=== PATIENT | female | born 1995 | race Caucasian/White ===

== ENCOUNTER 2016-09-21 22:16 | Emergency (ER) | payer BC, OTHER ==
--- NOTE | 2016-09-21 23:08 | EDM.PDOC ---
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 The patient has had no nausea vomiting diarrhea and has a history of chronic constipation. The patient has had no fevers or chills no urinary complaints and currently is not vaginally bleeding. She has no history of STDs and no history. She is scheduled to meet with her OB M.D. next week at [facility]. She is concerned and presents for evaluation Review of systems: As per history of present illness and below otherwise all systems reviewed and negative. Past medical history: As per history of present illness and as reviewed below otherwise noncontributory. Surgical history: As per history of present illness and as reviewed below otherwise noncontributory. Social history: No reported history of drug or alcohol abuse. Family history: As per history of present illness and as reviewed below otherwise noncontributory. Physical exam: Gen.: Well-developed well-nourished female who is nontoxic and vital signs have been reviewed by me HEENT: Atraumatic, normocephalic, negative for conjunctival pallor or scleral icterus, mucous membranes moist, throat clear, neck supple, nontender, trachea midline. Lungs: Clear to auscultation, breath sounds equal bilaterally, chest nontender. Heart: S1S2, regular rate and rhythm no overt murmurs Abdomen: Soft, nondistended, nontender. Negative for masses or hepatosplenomegaly. Negative for costovertebral tenderness. Pelvis: Stable nontender. Genitourinary: Deferred. Rectal: Deferred. Extremities: Atraumatic, negative for cords or calf pain. Neurovascular unremarkable. Neuro: Awake, alert, oriented. Cranial nerves II through XII unremarkable. Cerebellum unremarkable. Motor and sensory unremarkable throughout. Exam nonfocal. Diagnostics: CBC quantitative hCG UA urine culture if indicated pelvic ultrasound ABO Rh Therapeutics: I discussed all testing results with the patient had significant other bedside. I have advised strict pelvic rest and keeping her appointment next week at [facility]. Advised on reasons to return to the ED Impression: Threatened Definitive disposition and diagnosis as appropriate pending reevaluation and review of above. - Related Data Allergies Allergy/AdvReac Type Severity Reaction Status Date / Time No Known Allergies Allergy Verified 09/21/16 22:45 Home Meds: Home Meds . [No Known Home Meds] 09/21/16 [History] Past Medical History - Past Health History Medical/Surgical History: Denies Medical/Surgical History Social & Family History - Tobacco Use Smoking Status *Q: Never Smoker Second Hand Smoke Exposure: No - Caffeine Use Caffeine Use: Reports: None - Recreational Drug Use Recreational Drug Use: No ED ROS GENERAL - Review of Systems Review Of Systems: ROS reveals no pertinent complaints other than HPI. ED EXAM, GENERAL - Physical Exam Exam: See Below (See dictation) Course - Vital Signs Last Recorded V/S: Last Vital Signs Temp 36.8 C 09/21/16 22:52 Pulse 82 09/21/16 22:52 Resp 18 09/21/16 22:52 BP 108/56 L 09/21/16 22:52 Pulse Ox 96 09/21/16 22:52 - Orders/Labs/Meds Orders: Active Orders 24 hr Category Date Time Status OB 1st Tri Sgl 1st Gest [US] Stat Exams 09/21/16 23:05 Taken Labs: Laboratory Tests 09/21/16 09/21/16 09/21/16 Range/Units 23:10 23:10 23:10 WBC 8.40 (4.0-11.0) K/uL RBC 4.34 (4.30-5.90) M/uL Hgb 12.8 (12.0-16.0) g/dL Hct 37.5 (36.0-46.0) % MCV 86.4 (80.0-98.0) fL MCH 29.5 (27.0-32.0) pg MCHC 34.1 (31.0-37.0) g/dL RDW Std Deviation 37.2 (28.0-62.0) fl RDW Coeff of Juancarlos 12 (11.0-15.0) % Plt Count 241 (150-400) K/uL MPV 9.30 (7.40-12.00) fL Neut % (Auto) 56.8 (48.0-80.0) % Lymph % (Auto) 31.2 (16.0-40.0) % Bourbon % (Auto) 7.5 (0.0-15.0) % Eos % (Auto) 4.0 (0.0-7.0) % Baso % (Auto) 0.5 (0.0-1.5) % Neut # (Auto) 4.8 (1.4-5.7) K/uL Lymph # (Auto) 2.6 H (0.6-2.4) K/uL Bourbon # (Auto) 0.6 (0.0-0.8) K/uL Eos # (Auto) 0.3 (0.0-0.7) K/uL Baso # (Auto) 0.0 (0.0-0.1) K/uL Nucleated RBC % 0.0 /100WBC Nucleated RBCs # 0 K/uL HCG, Quant 14362.9 mIU/mL Urine Color Urine Appearance Urine pH (5.0-8.0) Ur Specific Harlan (1.001-1.035) Urine Protein (NEGATIVE) mg/dL Urine Glucose (UA) (NEGATIVE) mg/dL Urine Ketones (NEGATIVE) mg/dL Urine Occult Blood (NEGATIVE) Urine Nitrite (NEGATIVE) Urine Bilirubin (NEGATIVE) Urine Urobilinogen (<2.0) EU/dL Ur Leukocyte Esterase (NEGATIVE) Urine RBC (0-2/HPF) Urine WBC (0-5/HPF) Ur Epithelial Cells (NONE-FEW) Urine Bacteria (NEGATIVE) Blood Type A POSITIVE 09/21/16 Range/Units 23:17 WBC (4.0-11.0) K/uL RBC (4.30-5.90) M/uL Hgb (12.0-16.0) g/dL Hct (36.0-46.0) % MCV (80.0-98.0) fL MCH (27.0-32.0) pg MCHC (31.0-37.0) g/dL RDW Std Deviation (28.0-62.0) fl RDW Coeff of Juancarlos (11.0-15.0) % Plt Count (150-400) K/uL MPV (7.40-12.00) fL Neut % (Auto) (48.0-80.0) % Lymph % (Auto) (16.0-40.0) % Bourbon % (Auto) (0.0-15.0) % Eos % (Auto) (0.0-7.0) % Baso % (Auto) (0.0-1.5) % Neut # (Auto) (1.4-5.7) K/uL Lymph # (Auto) (0.6-2.4) K/uL Bourbon # (Auto) (0.0-0.8) K/uL Eos # (Auto) (0.0-0.7) K/uL Baso # (Auto) (0.0-0.1) K/uL Nucleated RBC % /100WBC Nucleated RBCs # K/uL HCG, Quant mIU/mL Urine Color YELLOW Urine Appearance CLEAR Urine pH 6.0 (5.0-8.0) Ur Specific Harlan 1.020 (1.001-1.035) Urine Protein NEGATIVE (NEGATIVE) mg/dL Urine Glucose (UA) NEGATIVE (NEGATIVE) mg/dL Urine Ketones NEGATIVE (NEGATIVE) mg/dL Urine Occult Blood NEGATIVE (NEGATIVE) Urine Nitrite NEGATIVE (NEGATIVE) Urine Bilirubin NEGATIVE (NEGATIVE) Urine Urobilinogen 0.2 (<2.0) EU/dL Ur Leukocyte Esterase NEGATIVE (NEGATIVE) Urine RBC NONE SEEN (0-2/HPF) Urine WBC 0-1 (0-5/HPF) Ur Epithelial Cells FEW (NONE-FEW) Urine Bacteria RARE (NEGATIVE) Blood Type Departure - Departure Time of Disposition: 00:46 Disposition: Home, Self-Care 01 Condition: Good Clinical Impression: Threatened - Discharge Information Forms: ED Department Discharge Additional Instructions: The following information is given to patients seen in the emergency department who are being discharged to home. This information is to outline your options for follow-up care. We provide all patients seen in our emergency department with a follow-up referral. The need for follow-up, as well as the timing and circumstances, are variable depending upon the specifics of your emergency department visit. If you don't have a primary care physician on staff, we will provide you with a referral. We always advise you to contact your personal physician following an emergency department visit to inform them of the circumstance of the visit and for follow-up with them and/or the need for any referrals to a consulting specialist. The emergency department will also refer you to a specialist when appropriate. This referral assures that you have the opportunity for followup care with a specialist. All of these measure are taken in an effort to provide you with optimal care, which includes your followup. Under all circumstances we always encourage you to contact your private physician who remains a resource for coordinating your care. When calling for followup care, please make the office aware that this follow-up is from your recent emergency room visit. If for any reason you are refused follow-up, please contact the [facility] emergency department at and ask to speak to the emergency department charge nurse. [facility] [address] [place] [phone] Push hydration and rest as much as possible and nothing in vagina/strict pelvic rest as we discussed until you're followed up in the clinic. Please keep your appointment next week at [facility] and return to ER as needed and as discussed - My Orders Last 24 Hours: My Active Orders 09/21/16 23:05 OB 1st Tri Sgl 1st Gest [US] Stat - Assessment/Plan Last 24 Hours: My Active Orders 09/21/16 23:05 OB 1st Tri Sgl 1st Gest [US] Stat
[2016-09-22 01:02] VITALS: BP 135/81
--- NOTE | 2016-09-22 10:05 | US ---
EXAM DATE: 09/21/16 PATIENT'S AGE: 21 Patient: YVETTE COWAN Facility: [place], [place] Site . Site : 1995 Study: US OB Pelvis [id number]/26/2017 12:29:25 AM Ordering Physician: Fiorella Jeffery Final Report: INDICATION: Bleeding. TECHNIQUE: Ultrasound pelvis transabdominal and transvaginal for better assessment or to better visualize the endometrium. Real-time sonographic images with spectral and color Doppler imaging of the ovaries were obtained. COMPARISON: None. FINDINGS: Single living intrauterine with crown-rump length of 12 mm corresponding to 7 weeks 3 days. heart rate is 150 beats per minute. Normal-appearing gestational sac and yolk sac. The uterus is otherwise normal in appearance. Right ovary is 3.3 x 1.9 x 2.1 cm and is within normal limits. Normal-appearing color Doppler flow in the right ovary. Left ovary is 3.2 x 1.9 x 2.4 cm and is within normal limits. Normal-appearing color Doppler flow in the left ovary. No pelvic free fluid. IMPRESSION: Single living intrauterine with estimated age of 7 weeks 3 days. Dictated by Rachid Moreno MD @ 09/22/2016 12:41:31 AM Dictated by: Rachid Moreno MD @ 09/22/2016 00:41:50 (Electronic Signature) Report Signed by Proxy. DENNIS
== END 2016-09-22 00:59 | disposition home or self-care (01) ==
LOC: MW.ED 22:16
DX: O20.0 Threatened abortion (principal); Z3A.01 Less than 8 weeks gestation of pregnancy
CPT/HCPCS: 36415; 76801; 76801-26; 81001; 84702; 85025; 86900; 86901; 99283; 99284-25

== ENCOUNTER 2017-04-29 00:56 | Inpatient (IN) | payer BC ==
[2017-04-29] MEDS ORDERED: Sodium Chloride 0.9% 2.5 ML Syringe FLUSH PRN ×2 (02:59→03:39)
[2017-04-29] MEDS ORDERED: Sodium Chloride 0.9% 10 ML Syringe FLUSH PRN ×2 (02:59→03:39)
[2017-04-29] MEDS ORDERED: Lactated Ringers 1,000 ML IV SCH ×3 (03:00→06:15)
[2017-04-29] MEDS ORDERED: Citric Acid/Sodium Citrate Solution 30 ML Cup PO SCH (03:45)
[2017-04-29] MEDS ORDERED: Oxytocin/0.9 % Sodium Chloride 30 UNIT/500 ML BAG IV SCH (03:45)
[2017-04-29] MEDS ORDERED: ceFAZolin 1 GM in Premix Bag 1 BAG IV ONE (05:00)
[2017-04-29] MEDS ORDERED: Morphine PF 1 MG/ML Amp ONE (05:11)
[2017-04-29] MEDS ORDERED: ceFAZolin/Dextrose,Iso-Osmotic 2 GM/50 ML Duplex Bag IV ONE (05:20)
[2017-04-29] MEDS ORDERED: ePHEDrine 50 MG/ML SDV ONE (05:29)
[2017-04-29] MEDS ORDERED: Acetaminophen/oxyCODONE 325-5 MG Tab PO PRN ×2 (06:04→06:20)
[2017-04-29] MEDS ORDERED: Aluminum Hydroxide/Magnesium Hydroxide/Simethicone Susp 30 ML Cup PO PRN (06:04)
[2017-04-29] MEDS ORDERED: Lanolin 100% Cream 7 GM Tube TOP PRN (06:04)
[2017-04-29] MEDS ORDERED: Simethicone 80 MG Tab.Chew PO PRN (06:04)
[2017-04-29] MEDS ORDERED: diphenhydrAMINE 50 MG/ML SDV IVPUSH PRN ×2 (06:04→06:18)
[2017-04-29] MEDS ORDERED: Ondansetron 4 MG/2 ML SDV IV PRN (06:04)
[2017-04-29] MEDS ORDERED: Bisacodyl 10 MG Supp RECTAL PRN (06:04)
--- NOTE | 2017-04-29 06:09 | PCM.PREANE ---
Preanesthetic Assessment - Anesthesia/Transfusion/Family Hx Anesthesia History: Prior Anesthesia Without Reaction Family History of Anesthesia Reaction: No Transfusion History: No Prior Transfusion(s) Intubation History: Unknown - Review of Systems General: No Symptoms Pulmonary: No Symptoms Cardiovascular: No Symptoms Gastrointestinal: No Symptoms Neurological: No Symptoms Other: Reports: None - Physical Assessment Height: 1.68 m Weight: 78.471 kg ASA Class: 2E Mental Status: Alert & Oriented x3 Airway Class: Mallampati = 2 Dentition: Reports: Normal Dentition Thyro-Mental Finger Breadths: 3 Mouth Opening Finger Breadths: 3 ROM/Head Extension: Full Lungs: Clear to Auscultation, Normal Respiratory Effort Cardiovascular: Regular Rate, Regular Rhythm - Lab Values: Laboratory Last Values WBC 13.79 K/uL (4.0-11.0) H 04/29/17 04:08 RBC 3.90 M/uL (4.30-5.90) L 04/29/17 04:08 Hgb 12.2 g/dL (12.0-16.0) 04/29/17 04:08 Hct 35.1 % (36.0-46.0) L 04/29/17 04:08 MCV 90.0 fL (80.0-98.0) 04/29/17 04:08 MCH 31.3 pg (27.0-32.0) 04/29/17 04:08 MCHC 34.8 g/dL (31.0-37.0) 04/29/17 04:08 RDW Std Deviation 40.8 fl (28.0-62.0) 04/29/17 04:08 RDW Coeff of Juancarlos 13 % (11.0-15.0) 04/29/17 04:08 Plt Count 197 K/uL (150-400) 04/29/17 04:08 MPV 10.50 fL (7.40-12.00) 04/29/17 04:08 Nucleated RBC % 0.0 /100WBC 04/29/17 04:08 Nucleated RBCs # 0 K/uL 04/29/17 04:08 Blood Type A POSITIVE 04/29/17 04:08 Antibody Screen NEGATIVE 04/29/17 04:08 - Allergies Allergies/Adverse Reactions: Allergies Allergy/AdvReac Type Severity Reaction Status Date / Time No Known Allergies Allergy Verified 04/27/17 09:50 - Blood Blood Available: No - Anesthesia Plan Pre-Op Medication Ordered: None - Acknowledgements Anesthesia Type Planned: Spinal Pt an Appropriate Candidate for the Planned Anesthesia: Yes Alternatives and Risks of Anesthesia Discussed w Pt/Guardian: Yes Pt/Guardian Understands and Agrees with Anesthesia Plan: Yes PreAnesthesia Questionnaire - Past Health History Medical/Surgical History: Denies Medical/Surgical History Gastrointestinal History: Reports: Chronic Constipation 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: Musculoskeletal History: Reports: Fracture - Past Surgical History Head Surgeries/Procedures: Reports: None HEENT Surgical History: Reports: Adenoidectomy, Oral Surgery, Tonsillectomy Female Surgical History: Reports: Other (See Below) (attempted external version ealier this week) - SUBSTANCE USE Smoking Status *Q: Never Smoker Second Hand Smoke Exposure: No Recreational Drug Use History: No - HOME MEDS Home Medications: Home Meds PNV95/Ferrous Fumarate/FA [ Vitamins Tablet] 1 tab PO DAILY 04/27/17 [ History] - CURRENT (IN HOUSE) MEDS Current Meds: Current Medications Al Hydroxide/Mg Hydroxide (Mag-Al Plus) 30 ml PO Q8H PRN PRN Reason: Heartburn Bisacodyl (Dulcolax) 10 mg RECTAL .ONCE PRN PRN Reason: Constipation Citric Acid/Sodium Citrate (Bicitra Solution) 30 ml PO .ONCE HUSAM Diphenhydramine HCl (Benadryl) 25 mg IVPUSH Q6H PRN PRN Reason: Itching or Nausea Docusate Sodium (Colace) 100 mg PO BID HUSAM Emollient Ointment (Lansinoh Hpa) 0 gm TOP ASDIRECTED PRN PRN Reason: Sore Nipples Lactated Ringer's (Ringers, Lactated) 1,000 mls @ 500 mls/hr IV .BOLUS HUSAM Oxytocin/Sodium Chloride (Oxytocin 30 Unit/500 Ml-Ns) 30 unit in 500 mls @ 250 mls/hr IV TITRATE HUSAM Lactated Ringer's (Ringers, Lactated) 1,000 mls @ 500 mls/hr IV .BOLUS HUSAM Last Admin: 04/29/17 04:46 Dose: 500 mls/hr Lactated Ringer's (Ringers, Lactated) 1,000 mls @ 125 mls/hr IV ASDIRECTED HUSAM Ibuprofen (Motrin) 800 mg PO Q8H PRN PRN Reason: mild pain or fever Ketorolac Tromethamine (Toradol) 30 mg IVPUSH Q6H HUSAM Stop: 04/30/17 06:16 Ondansetron HCl (Zofran) 4 mg IV Q4H PRN PRN Reason: Nausea/Vomiting Oxycodone/Acetaminophen (Percocet 325-5 Mg) 1 tab PO Q4H PRN PRN Reason: Pain (moderate 4-6) Oxycodone/Acetaminophen (Percocet 325-5 Mg) 2 tab PO Q4H PRN PRN Reason: Pain (moderate 4-6) Simethicone (Simethicone) 80 mg PO Q4H PRN PRN Reason: Gas Sodium Chloride (Saline Flush) 10 ml FLUSH ASDIRECTED PRN PRN Reason: Keep Vein Open Sodium Chloride (Saline Flush) 2.5 ml FLUSH ASDIRECTED PRN PRN Reason: Keep Vein Open Sodium Chloride (Saline Flush) 10 ml FLUSH ASDIRECTED PRN PRN Reason: Keep Vein Open Sodium Chloride (Saline Flush) 2.5 ml FLUSH ASDIRECTED PRN PRN Reason: Keep Vein Open Discontinued Medications Cefazolin Sodium/Dextrose (Ancef) Confirm Administered Dose 2 gm IV .STK-MED ONE Stop: 04/29/17 05:21 Ephedrine Sulfate (Ephedrine Sulfate) Confirm Administered Dose 50 mg .ROUTE .STK-MED ONE Stop: 04/29/17 05:30 Cefazolin Sodium/Dextrose 1 gm (/ Premix) 50 mls @ 100 mls/hr IV ONETIME ONE Stop: 04/29/17 05:29 Morphine Sulfate (Duramorph Pf) Confirm Administered Dose 1 mg .ROUTE .STK-MED ONE Stop: 04/29/17 05:12
--- NOTE | 2017-04-29 06:12 | PCM.OPNOTE ---
- General Post-Op/Procedure Note Date of Surgery/Procedure: 04/29/17 Operative Procedure(s): Primary LTCS Findings: Term male APGARs 8, 9 weight 3750 gm. Delivery intact placenta with 3V cord. normal appearing pelvis, normal appearing uterine cavity Pre Op Diagnosis: 38/6 week IUP. Labor. Breech presentation Post-Op Diagnosis: Same Anesthesia Technique: Spinal Primary Surgeon: Dorene Bray Fluid Replacement, Intraop: 1,500 EBL in mLs: 700 Complications: none known Condition: Good Free Text/Narrative:: Intake & Output 04/28/17 04/28/17 04/29/17 14:59 22:59 06:59 Output Total 100 Balance -100 Dictation [id number]
[2017-04-29] MEDS ORDERED: Naloxone 0.4 MG/ML Syringe IVPUSH PRN (06:18)
[2017-04-29] MEDS ORDERED: Nalbuphine 10 MG/1 ML Vial IVPUSH PRN (06:18)
[2017-04-29] MEDS: Ketorolac 30 MG/ML SDV IVPUSH SCH ×3 (06:18→18:12)
[2017-04-29] MEDS ORDERED: fentaNYL 100 MCG/2 ML SDV IVPUSH PRN (06:20)
--- NOTE | 2017-04-29 06:42 | PCM.POSTAN ---
POST ANESTHESIA ASSESSMENT - MENTAL STATUS Mental Status: Alert, Oriented - RESPIRATORY Respiratory Status: Respiratory Rate WNL, Airway Patent, O2 Saturation Stable - CARDIOVASCULAR CV Status: Pulse Rate WNL, Blood Pressure Stable - GASTROINTESTINAL GI Status: No Symptoms - POST OP HYDRATION Hydration Status: Adequate & Stable
--- NOTE | 2017-04-29 07:43 | OR ---
SURGEON: Dorene Bray M.D. DATE OF PROCEDURE: 04/29/2017 PREOPERATIVE DIAGNOSES: 1. A 38 and 6 week intrauterine . 2. Active labor. 3. Breech presentation. POSTOPERATIVE DIAGNOSES: 1. A 38 and 6 week intrauterine . 2. Active labor. 3. Breech presentation. PROCEDURE: Primary low transverse section via Pfannenstiel skin incision. ANESTHESIA: Spinal. ESTIMATED BLOOD LOSS: 700 mL. FLUIDS: 1500 mL crystalloid. COMPLICATIONS: None known. FINDINGS: Term male, score 8 at 1 minute, 9 at 5 minute. Weight of 3750 g. Intact placenta, 3-vessel cord. Normal appearing pelvis. Normal appearing uterine cavity. Clear amniotic fluid. DISPOSITION: The patient to PACU in stable condition. Infant to nursery. 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 On initial examination, she was found to be 1 cm; within 2 hours, she was found to be 3 cm. Therefore, she was admitted for labor. Routine labs were drawn. IV hydration was initiated. She is known breech presentation. This was confirmed by bedside sonogram. Attempts at external cephalic version earlier in the week were no successful; therefore, it was planned to have a delivery. Risks of the were once again reviewed with Areli and her . Proper consent has been obtained. The patient was taken to the operating room, where she underwent spinal anesthetic, was placed in dorsal supine position with leftward tilt. SCDs lower extremities, Shipman to gravity, was prepped and draped in the usual sterile fashion. Received Ancef prophylactically. Time-out was performed. After being prepped and draped in the usual sterile fashion, anesthesia was tested and found to be adequate. Pfannenstiel skin incision was created, carried down to the level of rectus fascia, which was incised in the midline lateralized on either side sharply and bluntly. The superior aspect of fascia was tented up, dissected sharply and bluntly away from underlying muscle. In a similar fashion, this was performed with the inferior aspect of the fascia. Rectus muscles were in the midline. Peritoneum was tented upward and entered sharply. Rectus muscles and peritoneum were lateralized bluntly. Uterine position and position palpated. Self-retaining retractor gently placed. Uterovesical reflection was visualized. Bladder flap was created sharply and bluntly. Bladder was mobilized away from the lower uterine segment. Low transverse hysterotomy was performed. Uterine cavity was entered bluntly with the scalpel. Hysterotomy was lateralized bluntly. Amniotomy revealed clear fluid. The infant's buttocks were delivered to the midline, the buttocks were delivered followed by the right lower extremity and left lower extremity in flexed position, trunk and right upper extremity in flexed position, left upper extremity was flexed the head and with fundal pressure was able to deliver the head. The infant's oropharynx and nares were bulb suctioned. Cord was clamped x2 and cut. Infant was handed off to attending physician, Dr. Messina. Cord arterial, cord venous, cord blood sampling was obtained. The placenta was now delivered. Uterine cavity was cleared of all clot and debris. The uterine cavity appears normal by palpation. Hysterotomy repaired using 0 Vicryl in continuous locked fashion followed by a re-imbricating layer. Area of oozing in the left lower side was repaired with a [id number] suture. Hemostasis thereafter evident. Posterior aspect of the uterus revealed no defects or hematomas. The regions were well irrigated and suction dried. Colonic gutters were cleared of all clot and debris, well irrigated and suction dried. The hysterotomy was once again inspected and found to be hemostatic. Self-retaining retractor now gently removed. Bladder blade was placed. Hysterotomy once again inspected, found to be hemostatic. The rectus muscles were reapproximated using 0 Vicryl in inverted mattress suture technique. Anterior aspect of the muscle, posterior aspect of the fascia closely inspected. Any areas of oozing were cauterized. The rectus fascia was reapproximated using 0 Vicryl in a continuous running fashion beginning laterally on either side and meeting in the midline. The subcutaneous tissue was well irrigated and suction dried. Any areas of oozing were cauterized. The skin edges were reapproximated with 3-0 Vicryl in subcuticular fashion. It was followed by a re-imbrication with 1/2-inch Steri-Strips and Mastisol. Sponge, instrument, and needle counts were correct x2. The uterus remains firm. Hemostasis evident. The patient will go to PACU in stable condition. Infant to nursery. CRUZITO / BEATRIZ /[id number]
[2017-04-29] MEDS: Docusate Sodium 100 MG Cap PO SCH ×2 (12:22→21:30)
[2017-04-30] MEDS: Ketorolac 30 MG/ML SDV IVPUSH SCH ×2 (00:39→05:54)
[2017-04-30] MEDS: Docusate Sodium 100 MG Cap PO SCH ×2 (08:46→20:04)
--- NOTE | 2017-04-30 09:40 | PCM.PNPP ---
- General Info Date of Service: 04/30/17 Admission Dx/Problem (Free Text): 21 yo P1 s/p primary for breech presentation , stable Subjective Update: Patient seen at bedside , denies any complains , she is ambulating , voiding and tolerating regular diet Minimal lochia Functional Status: Reports: Pain Controlled, Tolerating Diet, Ambulating, Urinating - Review of Systems General: Reports: No Symptoms HEENT: Reports: No Symptoms Pulmonary: Reports: No Symptoms Cardiovascular: Reports: No Symptoms Gastrointestinal: Reports: No Symptoms Genitourinary: Reports: No Symptoms Musculoskeletal: Reports: No Symptoms Skin: Reports: No Symptoms Neurological: Reports: No Symptoms Psychiatric: Reports: No Symptoms - General Info Date of Service: 04/30/17 - Patient Data Vital Signs - Most Recent: Last Vital Signs Temp 36.8 C 04/30/17 07:35 Pulse 71 04/30/17 07:35 Resp 15 04/30/17 07:35 BP 91/53 L 04/30/17 07:35 Pulse Ox 96 04/30/17 07:35 Weight - Most Recent: 78.471 kg I&O - Last 24 Hours: Intake & Output 04/29/17 04/30/17 04/30/17 22:59 06:59 14:59 Intake Total 2025 700 Output Total 580 1200 Balance 1445 -500 Lab Results - Last 24 Hours: Laboratory Results - last 24 hr 04/30/17 Range/Units 05:48 Hgb 9.3 L (12.0-16.0) g/dL Hct 27.8 L (36.0-46.0) % Med Orders - Current: Current Medications Al Hydroxide/Mg Hydroxide (Mag-Al Plus) 30 ml PO Q8H PRN PRN Reason: Heartburn Bisacodyl (Dulcolax) 10 mg RECTAL .ONCE PRN PRN Reason: Constipation Citric Acid/Sodium Citrate (Bicitra Solution) 30 ml PO .ONCE HUSAM Docusate Sodium (Colace) 100 mg PO BID HUSAM Last Admin: 04/30/17 08:46 Dose: 100 mg Emollient Ointment (Lansinoh Hpa) 0 gm TOP ASDIRECTED PRN PRN Reason: Sore Nipples Fentanyl (Sublimaze) 25 - 50 mcg IVPUSH Q30M PRN PRN Reason: Pain Lactated Ringer's (Ringers, Lactated) 1,000 mls @ 500 mls/hr IV .BOLUS [facility] Last Admin: 04/30/17 08:45 Dose: Not Given Oxytocin/Sodium Chloride (Oxytocin 30 Unit/500 Ml-Ns) 30 unit in 500 mls @ 250 mls/hr IV TITRATE HUSAM Lactated Ringer's (Ringers, Lactated) 1,000 mls @ 500 mls/hr IV .BOLUS [facility] Last Admin: 04/29/17 04:46 Dose: 500 mls/hr Lactated Ringer's (Ringers, Lactated) 1,000 mls @ 125 mls/hr IV ASDIRECTED [facility] Last Admin: 04/29/17 07:45 Dose: 125 mls/hr Ibuprofen (Motrin) 800 mg PO Q8H PRN PRN Reason: mild pain or fever Ondansetron HCl (Zofran) 4 mg IV Q4H PRN PRN Reason: Nausea/Vomiting Oxycodone/Acetaminophen (Percocet 325-5 Mg) 1 tab PO Q4H PRN PRN Reason: Pain (moderate 4-6) Oxycodone/Acetaminophen (Percocet 325-5 Mg) 2 tab PO Q4H PRN PRN Reason: Pain (moderate 4-6) Oxycodone/Acetaminophen (Percocet 325-5 Mg) 1 - 2 tab PO Q6H PRN PRN Reason: Pain Stop: 05/01/17 14:00 Simethicone (Simethicone) 80 mg PO Q4H PRN PRN Reason: Gas Sodium Chloride (Saline Flush) 10 ml FLUSH ASDIRECTED PRN PRN Reason: Keep Vein Open Sodium Chloride (Saline Flush) 2.5 ml FLUSH ASDIRECTED PRN PRN Reason: Keep Vein Open Sodium Chloride (Saline Flush) 10 ml FLUSH ASDIRECTED PRN PRN Reason: Keep Vein Open Sodium Chloride (Saline Flush) 2.5 ml FLUSH ASDIRECTED PRN PRN Reason: Keep Vein Open Discontinued Medications Cefazolin Sodium/Dextrose (Ancef) Confirm Administered Dose 2 gm IV .STK-MED ONE Stop: 04/29/17 05:21 Diphenhydramine HCl (Benadryl) 25 mg IVPUSH Q6H PRN PRN Reason: Itching or Nausea Diphenhydramine HCl (Benadryl) 25 mg IVPUSH Q4H PRN PRN Reason: Itching Stop: 04/30/17 06:19 Ephedrine Sulfate (Ephedrine Sulfate) Confirm Administered Dose 50 mg .ROUTE .STK-MED ONE Stop: 04/29/17 05:30 Cefazolin Sodium/Dextrose 1 gm (/ Premix) 50 mls @ 100 mls/hr IV ONETIME ONE Stop: 04/29/17 05:29 Last Admin: 04/30/17 08:45 Dose: Not Given Ketorolac Tromethamine (Toradol) 30 mg IVPUSH Q6H HUSAM Stop: 04/30/17 06:31 Last Admin: 04/30/17 05:54 Dose: 30 mg Morphine Sulfate (Duramorph Pf) Confirm Administered Dose 1 mg .ROUTE .STK-MED ONE Stop: 04/29/17 05:12 Nalbuphine HCl (Nubain) 5 mg IVPUSH Q3H PRN PRN Reason: Pruritis Stop: 04/30/17 06:19 Naloxone HCl (Narcan) 0.1 mg IVPUSH ONETIME PRN PRN Reason: Other Stop: 04/30/17 06:20 - Interaction Infant Disposition, : at Bedside Feeding: Breastfed ; Nursed Well Support Person: - Recovery Exam Fundal Tone: Firm Fundal Level: 1 Fingerbreadths Below Umbilicus Fundal Placement: Midline Lochia Amount: Scant Lochia Color: Rubra/Red Perineum Description: Intact, Minimal Bruising/Swelling Episiotomy/Laceration: None Bladder Status: Nonpalpable, Voiding Urinary Elimination: Voided - Exam General: Alert, Oriented HEENT: Pupils Equal Neck: Supple Lungs: Clear to Auscultation, Normal Respiratory Effort Cardiovascular: Regular Rate, Regular Rhythm GI/Abdominal Exam: Normal Bowel Sounds, Other (Pfannestiel skin incision with wound dressing in place c/d/i ) Extremities: Normal Inspection Wound/Incisions: Healing Well Psy/Mental Status: Alert, Normal Affect - Problem List & Annotations (1) delivery delivered SNOMED Code(s): 481922269 Code(s): O82 - ENCOUNTER FOR DELIVERY WITHOUT INDICATION Status: Acute Current Visit: Yes - Problem List Review Problem List Initiated/Reviewed/Updated: Yes - Assessment Assessment:: 21 yo P1 s/p primary , stable normal lochia - Plan Plan:: Pain control as needed D/c OVF Regular diet Ambulation Routine care Incentive spirometry
[2017-04-30] MEDS ORDERED: Ibuprofen 800 MG Tab PO PRN (12:30)
--- NOTE | 2017-04-30 16:54 | PCM48HPAN ---
Post Anesthesia Note - EVALUATION WITHIN 48HRS OF ANESTHETIC Vital Signs in Normal Range: Yes Patient Participated in Evaluation: Yes Respiratory Function Stable: Yes Airway Patent: Yes Cardiovascular Function Stable: Yes Hydration Status Stable: Yes Pain Control Satisfactory: Yes Nausea and Vomiting Control Satisfactory: Yes Mental Status Recovered: Yes Resp Rate: 17
[2017-04-30] MEDS: Acetaminophen/oxyCODONE 325-5 MG Tab PO PRN (20:03)
[2017-05-01] MEDS: Acetaminophen/oxyCODONE 325-5 MG Tab PO PRN ×2 (03:11→08:57)
[2017-05-01 08:40] VITALS: BP 114/58
[2017-05-01] MEDS: Docusate Sodium 100 MG Cap PO SCH (08:57)
--- NOTE | 2017-05-01 09:50 | PCM.PNPP ---
- General Info Date of Service: 05/01/17 Admission Dx/Problem (Free Text): 21 yo P1 s/p primary for breech presentation , PPD2 , stable Subjective Update: Patient seen at bedside , denies any complains , she is ambulating , voiding and tolerating regular diet Minimal lochia Functional Status: Reports: Pain Controlled, Tolerating Diet, Ambulating, Urinating - Review of Systems General: Reports: No Symptoms HEENT: Reports: No Symptoms Pulmonary: Reports: No Symptoms Cardiovascular: Reports: No Symptoms Gastrointestinal: Reports: No Symptoms Genitourinary: Reports: No Symptoms Musculoskeletal: Reports: No Symptoms Skin: Reports: No Symptoms Neurological: Reports: No Symptoms Psychiatric: Reports: No Symptoms - General Info Date of Service: 05/01/17 - Patient Data Vital Signs - Most Recent: Last Vital Signs Temp 36.7 C 05/01/17 08:00 Pulse 78 05/01/17 08:00 Resp 16 05/01/17 08:00 BP 114/58 L 05/01/17 08:00 Pulse Ox 98 05/01/17 08:00 Weight - Most Recent: 78.471 kg Med Orders - Current: Current Medications Al Hydroxide/Mg Hydroxide (Mag-Al Plus) 30 ml PO Q8H PRN PRN Reason: Heartburn Bisacodyl (Dulcolax) 10 mg RECTAL .ONCE PRN PRN Reason: Constipation Citric Acid/Sodium Citrate (Bicitra Solution) 30 ml PO .ONCE HUSAM Docusate Sodium (Colace) 100 mg PO BID HUSAM Last Admin: 05/01/17 08:57 Dose: 100 mg Emollient Ointment (Lansinoh Hpa) 0 gm TOP ASDIRECTED PRN PRN Reason: Sore Nipples Last Admin: 04/30/17 20:04 Dose: 7 gm Fentanyl (Sublimaze) 25 - 50 mcg IVPUSH Q30M PRN PRN Reason: Pain Lactated Ringer's (Ringers, Lactated) 1,000 mls @ 500 mls/hr IV .BOLUS [facility] Last Admin: 04/30/17 08:45 Dose: Not Given Oxytocin/Sodium Chloride (Oxytocin 30 Unit/500 Ml-Ns) 30 unit in 500 mls @ 250 mls/hr IV TITRATE HUSAM Lactated Ringer's (Ringers, Lactated) 1,000 mls @ 500 mls/hr IV .BOLUS [facility] Last Admin: 04/29/17 04:46 Dose: 500 mls/hr Lactated Ringer's (Ringers, Lactated) 1,000 mls @ 125 mls/hr IV ASDIRECTED [facility]USAM Last Admin: 04/29/17 07:45 Dose: 125 mls/hr Ibuprofen (Motrin) 800 mg PO Q8H PRN PRN Reason: mild pain or fever Last Admin: 04/30/17 14:22 Dose: 800 mg Ondansetron HCl (Zofran) 4 mg IV Q4H PRN PRN Reason: Nausea/Vomiting Oxycodone/Acetaminophen (Percocet 325-5 Mg) 1 tab PO Q4H PRN PRN Reason: Pain (moderate 4-6) Last Admin: 05/01/17 08:57 Dose: 1 tab Oxycodone/Acetaminophen (Percocet 325-5 Mg) 2 tab PO Q4H PRN PRN Reason: Pain (moderate 4-6) Oxycodone/Acetaminophen (Percocet 325-5 Mg) 1 - 2 tab PO Q6H PRN PRN Reason: Pain Stop: 05/01/17 14:00 Simethicone (Simethicone) 80 mg PO Q4H PRN PRN Reason: Gas Sodium Chloride (Saline Flush) 10 ml FLUSH ASDIRECTED PRN PRN Reason: Keep Vein Open Sodium Chloride (Saline Flush) 2.5 ml FLUSH ASDIRECTED PRN PRN Reason: Keep Vein Open Sodium Chloride (Saline Flush) 10 ml FLUSH ASDIRECTED PRN PRN Reason: Keep Vein Open Sodium Chloride (Saline Flush) 2.5 ml FLUSH ASDIRECTED PRN PRN Reason: Keep Vein Open Discontinued Medications Cefazolin Sodium/Dextrose (Ancef) Confirm Administered Dose 2 gm IV .STK-MED ONE Stop: 04/29/17 05:21 Diphenhydramine HCl (Benadryl) 25 mg IVPUSH Q6H PRN PRN Reason: Itching or Nausea Diphenhydramine HCl (Benadryl) 25 mg IVPUSH Q4H PRN PRN Reason: Itching Stop: 04/30/17 06:19 Ephedrine Sulfate (Ephedrine Sulfate) Confirm Administered Dose 50 mg .ROUTE .STK-MED ONE Stop: 04/29/17 05:30 Cefazolin Sodium/Dextrose 1 gm (/ Premix) 50 mls @ 100 mls/hr IV ONETIME ONE Stop: 04/29/17 05:29 Last Admin: 04/30/17 08:45 Dose: Not Given Ketorolac Tromethamine (Toradol) 30 mg IVPUSH Q6H HUSAM Stop: 04/30/17 06:31 Last Admin: 04/30/17 05:54 Dose: 30 mg Morphine Sulfate (Duramorph Pf) Confirm Administered Dose 1 mg .ROUTE .STK-MED ONE Stop: 04/29/17 05:12 Nalbuphine HCl (Nubain) 5 mg IVPUSH Q3H PRN PRN Reason: Pruritis Stop: 04/30/17 06:19 Naloxone HCl (Narcan) 0.1 mg IVPUSH ONETIME PRN PRN Reason: Other Stop: 04/30/17 06:20 - Interaction Infant Disposition, : at Bedside Infant Feeding: Breastfed ; Nursed Well Support Person: - Recovery Exam Fundal Tone: Firm Fundal Level: 1 Fingerbreadths Below Umbilicus Fundal Placement: Midline Lochia Amount: Scant Lochia Color: Rubra/Red Perineum Description: Intact, Minimal Bruising/Swelling Episiotomy/Laceration: None Bladder Status: Voiding Urinary Elimination: Voided - Exam General: Alert HEENT: Pupils Equal Neck: Supple Lungs: Clear to Auscultation Cardiovascular: Regular Rate, Regular Rhythm GI/Abdominal Exam: Normal Bowel Sounds, Other (Pfannestiel skin incision c/d/i ) Extremities: Normal Inspection Skin: Warm Wound/Incisions: Dressing Dry and Intact Neurological: No New Focal Deficit Psy/Mental Status: Alert - Problem List & Annotations (1) delivery delivered SNOMED Code(s): 744442715 Code(s): O82 - ENCOUNTER FOR DELIVERY WITHOUT INDICATION Status: Acute Current Visit: Yes - Problem List Review Problem List Initiated/Reviewed/Updated: Yes - My Orders Last 24 Hours: My Active Orders 05/01/17 09:47 Ready for Discharge [RC] PER UNIT ROUTINE - Assessment Assessment:: 21 yo P1 s/p primary , stable normal lochia, POD2 - Plan Plan:: Pain control as needed Regular diet Ambulation Routine care Incentive spirometry Discharge home today
== END 2017-05-01 12:38 | disposition home or self-care (01) | DRG 540 ==
LOC: MW.OBCHECK 00:56 → MW.OB 00:59 → MW.OBCHECK 03:39 → MW.OB 08:56
PROVIDERS: ADMIT Obstetrics & Gynecology; ATTEND Obstetrics & Gynecology
PROC: 10D00Z1 Extraction of Products of Conception, Low, Open Approach (ICD-10-PCS; principal; 2017-04-29)
DX: O32.1XX0 Maternal care for breech presentation, not applicable or unspecified (principal); Z3A.38 38 weeks gestation of pregnancy; Z37.0 Single live birth
CPT/HCPCS: 01961; 36415; 59025; 85014; 85018; 85027; 86850; 86900; 86901; A9270-GY; J0690; J1885; J2274; J7120

== ENCOUNTER 2019-06-29 01:06 | Inpatient (IN) | payer BC ==
[2019-06-29] MEDS ORDERED: Sodium Chloride 0.9% 2.5 ML Syringe FLUSH PRN (05:00)
[2019-06-29] MEDS ORDERED: Butorphanol 1 MG/ML SDV IVPUSH PRN (05:00)
[2019-06-29] MEDS ORDERED: Lidocaine 1% 50 ML MDV INJECT PRN (05:00)
[2019-06-29] MEDS ORDERED: Sodium Chloride 0.9% 10 ML Syringe FLUSH PRN (05:00)
[2019-06-29] MEDS ORDERED: Methylergonovine 0.2 MG/1 ML Amp IM PRN (05:00)
[2019-06-29] MEDS ORDERED: Ondansetron 4 MG/2 ML SDV IVPUSH PRN (05:00)
[2019-06-29] MEDS ORDERED: Tranexamic Acid 1,000 MG in Sodium Chloride 0.9% 100 ML IV PRN (05:00)
[2019-06-29] MEDS ORDERED: Carboprost Tromethamine 250 MCG/1 ML Amp IM PRN (05:00)
[2019-06-29] MEDS ORDERED: Sodium Chloride 0.9% 10 ML SDV IV PRN (05:00)
[2019-06-29] MEDS ORDERED: Misoprostol 200 MCG Tab PO PRN (05:00)
[2019-06-29] MEDS ORDERED: Ampicillin 2 GM in Sodium Chloride 0.9% 100 ML IV ONE (05:00)
[2019-06-29] MEDS ORDERED: Nalbuphine 10 MG/1 ML Vial IVPUSH PRN (05:00)
[2019-06-29] MEDS ORDERED: Water For Irrigation,Sterile 1,000 ML Container IRR PRN (05:00)
[2019-06-29] MEDS ORDERED: Oxytocin/0.9 % Sodium Chloride 30 UNIT/500 ML BAG IV SCH (05:00)
[2019-06-29] MEDS: Lactated Ringers 1,000 ML IV SCH ×3 (05:14→14:02)
[2019-06-29] MEDS ORDERED: Acetaminophen 500 MG Tab PO PRN ×2 (08:55→22:43)
[2019-06-29] MEDS: Ampicillin 1 GM in Sodium Chloride 0.9% 50 ML IV SCH ×3 (09:29→17:14)
--- NOTE | 2019-06-29 10:24 | PCM.PREANE ---
Preanesthetic Assessment - Anesthesia/Transfusion/Family Hx Anesthesia History: Prior Anesthesia Without Reaction Family History of Anesthesia Reaction: No Transfusion History: No Prior Transfusion(s) Intubation History: Unknown - Physical Assessment NPO Status Date: 06/29/19 NPO Status Time: 05:00 Height: 1.68 m Weight: 80.739 kg ASA Class: 1 - Lab Values: Laboratory Last Values WBC 13.89 K/uL (4.0-11.0) H 06/29/19 04:45 RBC 4.24 M/uL (4.30-5.90) L 06/29/19 04:45 Hgb 13.0 g/dL (12.0-16.0) 06/29/19 04:45 Hct 38.3 % (36.0-46.0) 06/29/19 04:45 MCV 90.3 fL (80.0-98.0) 06/29/19 04:45 MCH 30.7 pg (27.0-32.0) 06/29/19 04:45 MCHC 33.9 g/dL (31.0-37.0) 06/29/19 04:45 RDW Std Deviation 42.2 fl (28.0-62.0) 06/29/19 04:45 RDW Coeff of Juancarlos 13 % (11.0-15.0) 06/29/19 04:45 Plt Count 246 K/uL (150-400) 06/29/19 04:45 MPV 10.70 fL (7.40-12.00) 06/29/19 04:45 Nucleated RBC % 0.0 /100WBC 06/29/19 04:45 Nucleated RBCs # 0 K/uL 06/29/19 04:45 Blood Type A POSITIVE 06/29/19 04:45 Antibody Screen NEGATIVE 06/29/19 04:45 - Allergies Allergies/Adverse Reactions: Allergies Allergy/AdvReac Type Severity Reaction Status Date / Time No Known Allergies Allergy Verified 04/27/17 09:50 - Acknowledgements Anesthesia Type Planned: Spinal, Epidural Pt an Appropriate Candidate for the Planned Anesthesia: Yes Alternatives and Risks of Anesthesia Discussed w Pt/Guardian: Yes Pt/Guardian Understands and Agrees with Anesthesia Plan: Yes PreAnesthesia Questionnaire - Past Health History Medical/Surgical History: Denies Medical/Surgical History Gastrointestinal History: Reports: Chronic Constipation CERTIFIED [employer] History: Reports: Musculoskeletal History: Reports: Fracture - Past Surgical History Head Surgeries/Procedures: Reports: None HEENT Surgical History: Reports: Adenoidectomy, Oral Surgery, Tonsillectomy Female Surgical History: Reports: Other (See Below) - SUBSTANCE USE Smoking Status *Q: Never Smoker Second Hand Smoke Exposure: No Recreational Drug Use History: No - HOME MEDS Home Medications: Home Meds Pnv No.95/Ferrous Fum/Folic AC [ Vitamins Tablet] 1 tab PO DAILY [History] - CURRENT (IN HOUSE) MEDS Current Meds: Current Medications Acetaminophen (Tylenol Extra Strength) 1,000 mg PO Q6H PRN PRN Reason: Pain/Fever Last Admin: 06/29/19 09:11 Dose: 1,000 mg Butorphanol Tartrate (Stadol) 1 mg IVPUSH Q1H PRN PRN Reason: Pain Carboprost Tromethamine (Hemabate Ds) 250 mcg IM ASDIRECTED PRN PRN Reason: Post Hemorrhage Lactated Ringer's (Ringers, Lactated) 1,000 mls @ 150 mls/hr IV ASDIRECTED [facility] Last Infusion: 06/29/19 05:17 Dose: 500 mls/hr Oxytocin/Sodium Chloride (Oxytocin 30 Unit/500 Ml-Ns) 30 unit in 500 mls @ 999 mls/hr IV TITRATE [facility] Tranexamic Acid 1,000 mg/ (Sodium Chloride) 110 mls @ 660 mls/hr IV ONETIME PRN PRN Reason: Bleeding Ampicillin Sodium 1 gm/ Sodium (Chloride) 50 mls @ 100 mls/hr IV Q4H [facility] Last Admin: 06/29/19 09:29 Dose: 100 mls/hr Lidocaine HCl (Xylocaine 1%) 50 ml INJECT ONETIME PRN PRN Reason: Laceration repair Methylergonovine Maleate (Methergine) 0.2 mg IM ASDIRECTED PRN PRN Reason: Post Hemorrhage Misoprostol (Cytotec) 200 mcg PO ONETIME PRN PRN Reason: Post Hemorrhage Nalbuphine HCl (Nubain) 10 mg IVPUSH Q1H PRN PRN Reason: Pain (severe 7-10) Ondansetron HCl (Zofran) 4 mg IVPUSH Q4H PRN PRN Reason: Nausea/Vomiting Sodium Chloride (Saline Flush) 10 ml FLUSH ASDIRECTED PRN PRN Reason: Keep Vein Open Sodium Chloride (Saline Flush) 2.5 ml FLUSH ASDIRECTED PRN PRN Reason: Keep Vein Open Sodium Chloride (Normal Saline) 10 ml IV ASDIRECTED PRN PRN Reason: IV Use Sterile Water (Sterile Water For Irrigation) 1,000 ml IRR ASDIRECTED PRN PRN Reason: delivery Discontinued Medications Ampicillin Sodium 2 gm/ Sodium (Chloride) 100 mls @ 200 mls/hr IV ONETIME ONE Stop: 06/29/19 05:29 Last Admin: 06/29/19 05:14 Dose: 200 mls/hr
[2019-06-29] MEDS ORDERED: fentaNYL 100 MCG/2 ML SDV ONE (13:37)
[2019-06-29] MEDS ORDERED: Ropivacaine HCl/PF 100 ML ONE (13:37)
--- NOTE | 2019-06-29 14:04 | PCM.PRNOTE ---
- Free Text/Narrative Note: Anes Note Patient requests epidural for L&D. Sitting position, level L3-L4 miline approach. Sterile technique, chloraprep scrub to lumbar area. Sterile fenestrated drape applied. Epidural space easily achieved single attempt using ANTWON technique. ANTWON at 3 cm. Cath threaded 5 cm with ease. Cath secured at skin at 9 cm using sterile clear adhesive dressing. Test 1350 3 cc 1.5% lido with epi negative. Load 1355 0.2% ropiviciane with 1 mcg cc fentanyl in slow divided doses. 1400 Pump started with 90 cc same solution. rate is 8cc hr with 6 cc q 20 min prn bolus. Katherine well. Time with patient [id number] Jayesh Morrison
[2019-06-29] MEDS ORDERED: oxyCODONE 5 MG Tab PO PRN (22:43)
[2019-06-29] MEDS ORDERED: Benzocaine/Menthol 20%-0.5% Spray 78 GM Cannister TOP PRN (22:43)
[2019-06-29] MEDS ORDERED: Docusate Sodium 100 MG Cap PO PRN (22:43)
[2019-06-29] MEDS ORDERED: Lanolin 100% Cream 7 GM Tube TOP PRN (22:43)
[2019-06-29] MEDS ORDERED: Ibuprofen 800 MG Tab PO PRN (22:43)
[2019-06-29] MEDS ORDERED: Bisacodyl 10 MG Supp RECTAL PRN (22:43)
[2019-06-29] MEDS ORDERED: Witch Hazel Medicated Pads 40/Jar TOP PRN (22:43)
--- NOTE | 2019-06-29 22:49 | PCM.DEL ---
L & D Note - General Info Date of Service: 06/29/19 Mother's Due Date: 07/04/19 - Delivery Note Labor: Spontaneous Delivery Outcome: Livebirth Infant Delivery Method: Spontaneous Vaginal Delivery-Single Presentation: Left Occiput Anterior (JOSE C) Nuchal Cord: None Anesthesia Type: Epidural Episiotomy Type: None Laceration: 2nd Degree, Labial (left), Sulcus (right), Vaginal Suture type: Vicryl Suture size: 3-0 Placenta: Intact, Spontaneous Cord: 3 Vessels Resuscitation Needed: No : Stimulated, Warmed Score 1 min: 8 Score 5 min: 9 - General Info Date of Service: 06/29/19 - Patient Data Weight - Most Recent: 80.739 kg I&O - Last 24 Hours: Intake & Output 06/29/19 06/29/19 06/29/19 06:59 14:59 22:59 Intake Total 1050 Output Total 1300 Balance 1050 -1300 Lab Results Last 24 Hours: Laboratory Results - last 24 hr 06/29/19 06/29/19 Range/Units 04:45 04:45 WBC 13.89 H (4.0-11.0) K/uL RBC 4.24 L (4.30-5.90) M/uL Hgb 13.0 (12.0-16.0) g/dL Hct 38.3 (36.0-46.0) % MCV 90.3 (80.0-98.0) fL MCH 30.7 (27.0-32.0) pg MCHC 33.9 (31.0-37.0) g/dL RDW Std Deviation 42.2 (28.0-62.0) fl RDW Coeff of Juancarlos 13 (11.0-15.0) % Plt Count 246 (150-400) K/uL MPV 10.70 (7.40-12.00) fL Nucleated RBC % 0.0 /100WBC Nucleated RBCs # 0 K/uL Blood Type A POSITIVE Antibody Screen NEGATIVE Med Orders - Current: Current Medications Acetaminophen (Tylenol Extra Strength) 1,000 mg PO Q6H PRN PRN Reason: Pain/Fever Last Admin: 06/29/19 09:11 Dose: 1,000 mg Acetaminophen (Tylenol Extra Strength) 1,000 mg PO Q6H PRN PRN Reason: Pain Benzocaine/Menthol (Dermoplast Pain Relief 20%-0.5% [place]) 78 gm TOP ASDIRECTED PRN PRN Reason: Perineal Comfort Measure Bisacodyl (Dulcolax) 10 mg RECTAL ONETIME PRN PRN Reason: Constipation Butorphanol Tartrate (Stadol) 1 mg IVPUSH Q1H PRN PRN Reason: Pain Carboprost Tromethamine (Hemabate Ds) 250 mcg IM ASDIRECTED PRN PRN Reason: Post Hemorrhage Docusate Sodium (Colace) 100 mg PO BID PRN PRN Reason: Constipation Emollient Ointment (Lansinoh Hpa) 0 gm TOP ASDIRECTED PRN PRN Reason: Sore Nipples Lactated Ringer's (Ringers, Lactated) 1,000 mls @ 150 mls/hr IV ASDIRECTED [facility] Last Admin: 06/29/19 14:02 Dose: 150 mls/hr Oxytocin/Sodium Chloride (Oxytocin 30 Unit/500 Ml-Ns) 30 unit in 500 mls @ 999 mls/hr IV TITRATE [facility] Last Admin: 06/29/19 22:03 Dose: 999 mls/hr Tranexamic Acid 1,000 mg/ (Sodium Chloride) 110 mls @ 660 mls/hr IV ONETIME PRN PRN Reason: Bleeding Ampicillin Sodium 1 gm/ Sodium (Chloride) 50 mls @ 100 mls/hr IV Q4H [facility] Last Admin: 06/29/19 17:14 Dose: 100 mls/hr Ibuprofen (Motrin) 800 mg PO Q8H PRN PRN Reason: Pain Lidocaine HCl (Xylocaine 1%) 50 ml INJECT ONETIME PRN PRN Reason: Laceration repair Methylergonovine Maleate (Methergine) 0.2 mg IM ASDIRECTED PRN PRN Reason: Post Hemorrhage Misoprostol (Cytotec) 200 mcg PO ONETIME PRN PRN Reason: Post Hemorrhage Nalbuphine HCl (Nubain) 10 mg IVPUSH Q1H PRN PRN Reason: Pain (severe 7-10) Ondansetron HCl (Zofran) 4 mg IVPUSH Q4H PRN PRN Reason: Nausea/Vomiting Oxycodone HCl (Oxycodone) 5 mg PO Q2H PRN PRN Reason: Pain Sodium Chloride (Saline Flush) 10 ml FLUSH ASDIRECTED PRN PRN Reason: Keep Vein Open Sodium Chloride (Saline Flush) 2.5 ml FLUSH ASDIRECTED PRN PRN Reason: Keep Vein Open Sodium Chloride (Normal Saline) 10 ml IV ASDIRECTED PRN PRN Reason: IV Use Sterile Water (Sterile Water For Irrigation) 1,000 ml IRR ASDIRECTED PRN PRN Reason: delivery Last Admin: 06/29/19 22:15 Dose: 1,000 ml Witch Brittanie (Tucks) 1 pad TOP ASDIRECTED PRN PRN Reason: comfort care Discontinued Medications Fentanyl (Sublimaze) Confirm Administered Dose 100 mcg .ROUTE .STK-MED ONE Stop: 06/29/19 13:38 Ampicillin Sodium 2 gm/ Sodium (Chloride) 100 mls @ 200 mls/hr IV ONETIME ONE Stop: 06/29/19 05:29 Last Admin: 06/29/19 05:14 Dose: 200 mls/hr Ropivacaine (Naropin 0.2%) Confirm Administered Dose 100 mls @ as directed .ROUTE .STK-MED ONE Stop: 06/29/19 13:38 - Problem List & Annotations (1) Vaginal after SNOMED Code(s): 102610458 Code(s): O34.219 - MATERNAL CARE FOR UNSP TYPE SCAR FROM PREVIOUS DEL Status: Acute Current Visit: Yes - Problem List Review Problem List Initiated/Reviewed/Updated: Yes - My Orders Last 24 Hours: My Active Orders 06/29/19 22:43 Patient Status [ADT] Routine May Shower [RC] ASDIRECTED Notify Provider Vital Signs [RC] ASDIRECTED Up ad Odalis [RC] ASDIRECTED Vital Signs [RC] PER UNIT ROUTINE Acetaminophen [Tylenol Extra Strength] 1,000 mg PO Q6H PRN Benzocaine/Menthol [Dermoplast Pain Relief 20%-0.5% [place]] 78 gm TOP ASDIRECTED PRN Docusate Sodium [Colace] 100 mg PO BID PRN Ibuprofen [Motrin] 800 mg PO Q8H PRN Lanolin [Lansinoh HPA] See Dose Instructions TOP ASDIRECTED PRN bisacodyL [Dulcolax] 10 mg RECTAL ONETIME PRN oxyCODONE 5 mg PO Q2H PRN witch Brittanie [Tucks] 1 pad TOP ASDIRECTED PRN Assess Lochia [WOMSER] Per Unit Routine Assess Uterine Involution [WOMSER] Per Unit Routine Breast Pump [WOMSER] Per Unit Routine Peripheral IV Discontinue [OM.PC] Routine 06/29/19 22:44 Cooling Warming Measures [RC] ASDIRECTED Ice Therapy [OM.PC] Per Unit Routine Perineal Care [OM.PC] Per Unit Routine Sitz Bath [OM.PC] Per Unit Routine 06/29/19 Dinner Regular Diet [DIET] 06/30/19 05:11 HEMOGLOBIN/HEMATOCRIT,HH [HEME] Timed - Assessment Assessment:: 23yo s/p at 39w2d - Plan Plan:: Admit to unit for routine care.
--- NOTE | 2019-06-29 23:55 | OR ---
SURGEON: Radhika Wong MD DATE OF PROCEDURE: 06/29/2019 PREOPERATIVE DIAGNOSES: 1. A 23-year-old G2, P1-0-0-1 at 39 weeks and 2 days' gestation. 2. History of delivery x1. Desires trial of labor. 3. Group B Streptococcus positive. POSTOPERATIVE DIAGNOSES: 1. A 23-year-old G2, P2-0-0-2, status post vaginal after at 39 weeks and 2 days' gestation. 2. Group B Streptococcus positive. PROCEDURE: Vaginal after and repair of perineal lacerations. PRIMARY SURGEON: Radhika Wong MD. ANESTHESIA: Epidural. ESTIMATED BLOOD LOSS: 500 mL. PROPHYLAXIS: Ampicillin. FINDINGS: Live female infant in left occiput anterior position. score of 8 and 9 at 1 and 5 minutes respectively. Weight pending. Second-degree perineal, right sulcal, left labial, and vaginal lacerations. Placenta intact and with 3-vessel cord. INDICATIONS: This is a 23-year-old G2, P1-0-0-1, who presented at 39 weeks and 2 days' gestation in labor. Upon presentation, her cervix was initially found to be 1 or 2 cm dilated. She progressed spontaneously to 4 cm dilated. She was admitted and ampicillin was begun for GBS prophylaxis. At approximately 5 cm dilated, she underwent artificial rupture of membranes with light meconium fluid noted. She received an epidural for pain control. She progressed to complete cervical dilation and began pushing. I was called to the room. DESCRIPTION OF PROCEDURE: I was called to the room while the patient was pushing. Cervix was completely dilated with skull at +2 station. Over the next hour, patient continued pushing with continual progress of descent. The head delivered followed quickly by the shoulders and the remainder of the body. The infant was placed on maternal abdomen. After approximately 60 seconds, cord was clamped and cut. Cord blood was then obtained. Placenta then delivered via the Sutherland-Núñez maneuver intact and with 3-vessel cord. The perineum was inspected and a second- degree perineal, right sulcal, left labial, and vaginal lacerations were noted. These were all repaired to anatomy and hemostasis with 2-0 Vicryl. Estimated blood loss was 500 mL. The patient and tolerated the delivery well. [id number] / NILAL /[id number]
--- NOTE | 2019-06-30 08:39 | PCM48HPAN ---
Post Anesthesia Note - EVALUATION WITHIN 48HRS OF ANESTHETIC Vital Signs in Normal Range: Yes Patient Participated in Evaluation: Yes Respiratory Function Stable: Yes Airway Patent: Yes Cardiovascular Function Stable: Yes Hydration Status Stable: Yes Pain Control Satisfactory: Yes Nausea and Vomiting Control Satisfactory: Yes Mental Status Recovered: Yes Vital Signs: Last Vital Signs Temp 36.6 C 06/30/19 08:00 Pulse 92 06/30/19 08:00 Resp 16 06/30/19 08:00 BP 111/69 06/30/19 08:00 Pulse Ox 96 06/30/19 08:00
--- NOTE | 2019-06-30 16:05 | PCM.PNPP ---
- General Info Date of Service: 06/30/19 Subjective Update: Patient reports is going well. Tolerating oral intake, ambulating , voiding. Minimal lochia and pain. Functional Status: Reports: Pain Controlled, Tolerating Diet, Ambulating, Urinating - Review of Systems General: Reports: No Symptoms HEENT: Reports: No Symptoms Pulmonary: Reports: No Symptoms Cardiovascular: Reports: No Symptoms Gastrointestinal: Reports: No Symptoms Genitourinary: Reports: No Symptoms Musculoskeletal: Reports: No Symptoms Skin: Reports: No Symptoms Neurological: Reports: No Symptoms Psychiatric: Reports: No Symptoms - Patient Data Vital Signs - Most Recent: Last Vital Signs Temp 36.6 C 06/30/19 08:00 Pulse 92 06/30/19 08:00 Resp 16 06/30/19 08:00 BP 111/69 06/30/19 08:00 Pulse Ox 96 06/30/19 08:00 Weight - Most Recent: 80.739 kg Lab Results - Last 24 Hours: Laboratory Results - last 24 hr 06/30/19 Range/Units 05:25 Hgb 10.8 L (12.0-16.0) g/dL Hct 32.6 L (36.0-46.0) % Med Orders - Current: Current Medications Acetaminophen (Tylenol Extra Strength) 1,000 mg PO Q6H PRN PRN Reason: Pain/Fever Last Admin: 06/29/19 09:11 Dose: 1,000 mg Acetaminophen (Tylenol Extra Strength) 1,000 mg PO Q6H PRN PRN Reason: Pain Last Admin: 06/30/19 08:06 Dose: 1,000 mg Benzocaine/Menthol (Dermoplast Pain Relief 20%-0.5% Wilmore) 78 gm TOP ASDIRECTED PRN PRN Reason: Perineal Comfort Measure Bisacodyl (Dulcolax) 10 mg RECTAL ONETIME PRN PRN Reason: Constipation Butorphanol Tartrate (Stadol) 1 mg IVPUSH Q1H PRN PRN Reason: Pain Carboprost Tromethamine (Hemabate Ds) 250 mcg IM ASDIRECTED PRN PRN Reason: Post Hemorrhage Docusate Sodium (Colace) 100 mg PO BID PRN PRN Reason: Constipation Last Admin: 06/30/19 08:05 Dose: 100 mg Emollient Ointment (Lansinoh Hpa) 0 gm TOP ASDIRECTED PRN PRN Reason: Sore Nipples Lactated Ringer's (Ringers, Lactated) 1,000 mls @ 150 mls/hr IV ASDIRECTED [facility] Last Admin: 06/29/19 14:02 Dose: 150 mls/hr Oxytocin/Sodium Chloride (Oxytocin 30 Unit/500 Ml-Ns) 30 unit in 500 mls @ 999 mls/hr IV TITRATE [facility] Last Infusion: 06/29/19 22:30 Dose: Infused Tranexamic Acid 1,000 mg/ (Sodium Chloride) 110 mls @ 660 mls/hr IV ONETIME PRN PRN Reason: Bleeding Ampicillin Sodium 1 gm/ Sodium (Chloride) 50 mls @ 100 mls/hr IV Q4H [facility] Last Admin: 06/29/19 17:14 Dose: 100 mls/hr Ibuprofen (Motrin) 800 mg PO Q8H PRN PRN Reason: Pain Last Admin: 06/30/19 08:06 Dose: 800 mg Lidocaine HCl (Xylocaine 1%) 50 ml INJECT ONETIME PRN PRN Reason: Laceration repair Methylergonovine Maleate (Methergine) 0.2 mg IM ASDIRECTED PRN PRN Reason: Post Hemorrhage Misoprostol (Cytotec) 200 mcg PO ONETIME PRN PRN Reason: Post Hemorrhage Nalbuphine HCl (Nubain) 10 mg IVPUSH Q1H PRN PRN Reason: Pain (severe 7-10) Ondansetron HCl (Zofran) 4 mg IVPUSH Q4H PRN PRN Reason: Nausea/Vomiting Oxycodone HCl (Oxycodone) 5 mg PO Q2H PRN PRN Reason: Pain Sodium Chloride (Saline Flush) 10 ml FLUSH ASDIRECTED PRN PRN Reason: Keep Vein Open Sodium Chloride (Saline Flush) 2.5 ml FLUSH ASDIRECTED PRN PRN Reason: Keep Vein Open Sodium Chloride (Normal Saline) 10 ml IV ASDIRECTED PRN PRN Reason: IV Use Sterile Water (Sterile Water For Irrigation) 1,000 ml IRR ASDIRECTED PRN PRN Reason: delivery Last Admin: 06/29/19 22:15 Dose: 1,000 ml Witch Brittanie (Tucks) 1 pad TOP ASDIRECTED PRN PRN Reason: comfort care Discontinued Medications Fentanyl (Sublimaze) Confirm Administered Dose 100 mcg .ROUTE .STK-MED ONE Stop: 06/29/19 13:38 Ampicillin Sodium 2 gm/ Sodium (Chloride) 100 mls @ 200 mls/hr IV ONETIME ONE Stop: 06/29/19 05:29 Last Admin: 06/29/19 05:14 Dose: 200 mls/hr Ropivacaine (Naropin 0.2%) Confirm Administered Dose 100 mls @ as directed .ROUTE .STK-MED ONE Stop: 06/29/19 13:38 - Interaction Infant Disposition, : at Bedside Feeding: Breastfed ; Nursed Well Support Person: - Recovery Exam Fundal Tone: Firm Fundal Level: 2 Fingerbreadths Below Umbilicus Fundal Placement: Midline Lochia Amount: Scant Lochia Color: Rubra/Red Bladder Status: Voiding Urinary Elimination: Voided - Exam General: Alert, Oriented Neck: Supple Lungs: Clear to Auscultation, Normal Respiratory Effort Cardiovascular: Regular Rate, Regular Rhythm GI/Abdominal Exam: Non-Tender, No Distention Extremities: Non-Tender, No Pedal Edema Skin: Warm, Dry, Intact Neurological: No New Focal Deficit Psy/Mental Status: Alert, Normal Affect, Normal Mood - Problem List & Annotations (1) Vaginal after SNOMED Code(s): 555736686 Code(s): O34.219 - MATERNAL CARE FOR UNSP TYPE SCAR FROM PREVIOUS DEL Status: Acute Current Visit: Yes - Problem List Review Problem List Initiated/Reviewed/Updated: Yes - My Orders Last 24 Hours: My Active Orders 06/29/19 22:43 Patient Status [ADT] Routine May Shower [RC] ASDIRECTED Notify Provider Vital Signs [RC] ASDIRECTED Up ad Odalis [RC] ASDIRECTED Vital Signs [RC] PER UNIT ROUTINE Acetaminophen [Tylenol Extra Strength] 1,000 mg PO Q6H PRN Benzocaine/Menthol [Dermoplast Pain Relief 20%-0.5% Wil[place]] 78 gm TOP ASDIRECTED PRN Docusate Sodium [Colace] 100 mg PO BID PRN Ibuprofen [Motrin] 800 mg PO Q8H PRN Lanolin [Lansinoh HPA] See Dose Instructions TOP ASDIRECTED PRN bisacodyL [Dulcolax] 10 mg RECTAL ONETIME PRN oxyCODONE 5 mg PO Q2H PRN vincent Cruz [Sams] 1 pad TOP ASDIRECTED PRN Assess Lochia [WOMSER] Per Unit Routine Assess Uterine Involution [WOMSER] Per Unit Routine Breast Pump [WOMSER] Per Unit Routine Peripheral IV Discontinue [OM.PC] Routine 06/29/19 22:44 Cooling Warming Measures [RC] ASDIRECTED Ice Therapy [OM.PC] Per Unit Routine Perineal Care [OM.PC] Per Unit Routine Sitz Bath [OM.PC] Per Unit Routine 06/29/19 Dinner Regular Diet [DIET] - Assessment Assessment:: 23yo s/p at 39w2d, PPD#1 - Plan Plan:: Desires to stay overnight and discharge home on PPD#2. No concerns today. Continue routine care.
--- NOTE | 2019-06-30 19:06 | PCM.SN.2 ---
- Free Text/Narrative Note: Patient desires discharge home at 24 hours if infant cleared by [facility]. Reviewed discharge instructions, all questions answered.
[2019-06-30 20:00] VITALS: BP 118/59; PULSE 86
== END 2019-06-30 23:59 | disposition home or self-care (01) | DRG 560 ==
LOC: MW.OBCHECK 01:06 → MW.OB 01:07 → MW.OBCHECK 05:00 → MW.OB 05:00 → OBSVTOIN 22:02 → MW.OB 06-30 01:12
PROVIDERS: ADMIT Obstetrics & Gynecology; ATTEND Obstetrics & Gynecology
PROC: 10E0XZZ Delivery of Products of Conception, External Approach (ICD-10-PCS; principal; 2019-06-29)
PROC: 0KQM0ZZ Repair Perineum Muscle, Open Approach (ICD-10-PCS; 2019-06-29)
PROC: 0UQMXZZ Repair Vulva, External Approach (ICD-10-PCS; 2019-06-29)
PROC: 3E0R3BZ Introduction of Anesthetic Agent into Spinal Canal, Percutaneous Approach (ICD-10-PCS; 2019-06-29)
PROC: 10907ZC Drainage of Amniotic Fluid, Therapeutic from Products of Conception, Via Natural or Artificial Opening (ICD-10-PCS; 2019-06-29)
PROC: 4A1HXCZ Monitoring of Products of Conception, Cardiac Rate, External Approach (ICD-10-PCS; 2019-06-29)
DX: O99.824 Streptococcus B carrier state complicating childbirth (principal); Z3A.39 39 weeks gestation of pregnancy; Z37.0 Single live birth; O70.1 Second degree perineal laceration during delivery; O77.0 Labor and delivery complicated by meconium in amniotic fluid
CPT/HCPCS: 36415; 51702; 59025; 59409; 85014; 85018; 85027; 86592; 86593; 86850; 86900; 86901; A9270-GY; J0290; J2590; J2795; J3010; J7050; J7120

== ENCOUNTER 2021-10-08 00:26 | Inpatient (IN) | payer SELFPAY ==
[2021-10-08] MEDS ORDERED: Water For Irrigation,Sterile 1,000 ML Container IRR PRN (02:30)
[2021-10-08] MEDS ORDERED: Misoprostol 200 MCG Tab PO PRN (02:30)
[2021-10-08] MEDS ORDERED: Sodium Chloride 0.9% 2.5 ML Syringe FLUSH PRN (02:30)
[2021-10-08] MEDS ORDERED: Sodium Chloride 0.9% 10 ML Syringe FLUSH PRN (02:30)
[2021-10-08] MEDS ORDERED: Butorphanol 1 MG/ML SDV IVPUSH PRN (02:30)
[2021-10-08] MEDS ORDERED: Tranexamic Acid 1,000 MG in Sodium Chloride 0.9% 100 ML IV PRN (02:30)
[2021-10-08] MEDS ORDERED: Methylergonovine 0.2 MG/1 ML Amp IM PRN (02:30)
[2021-10-08] MEDS ORDERED: Lidocaine 1% 50 ML MDV INJECT PRN (02:30)
[2021-10-08] MEDS ORDERED: Oxytocin/0.9 % Sodium Chloride 30 UNIT/500 ML BAG IV SCH (02:30)
[2021-10-08] MEDS ORDERED: Ondansetron 4 MG/2 ML SDV IVPUSH PRN (02:30)
[2021-10-08] MEDS ORDERED: Carboprost Tromethamine 250 MCG/1 ML Amp IM PRN (02:30)
[2021-10-08] MEDS ORDERED: Lactated Ringers 1,000 ML IV SCH (02:30)
[2021-10-08] MEDS ORDERED: Sodium Chloride 0.9% 20 ML SDV IV PRN (02:30)
[2021-10-08] MEDS ORDERED: Ibuprofen 800 MG Tab PO PRN (10:59)
[2021-10-08] MEDS ORDERED: Witch Hazel Medicated Pads 40/Jar TOP PRN (10:59)
[2021-10-08] MEDS ORDERED: Docusate Sodium 100 MG Cap PO PRN (10:59)
[2021-10-08] MEDS ORDERED: Lanolin 100% Cream 7 GM Tube TOP PRN (10:59)
[2021-10-08] MEDS ORDERED: Ibuprofen 400 MG Tab PO PRN (10:59)
[2021-10-08] MEDS ORDERED: Hydrocortisone 2.5% Crm 30 GM Tube TOP PRN (10:59)
[2021-10-08] MEDS ORDERED: oxyCODONE 5 MG Tab PO PRN (10:59)
[2021-10-08] MEDS ORDERED: Benzocaine/Menthol 20%-0.5% Spray 78 GM Cannister TOP PRN (10:59)
[2021-10-08] MEDS ORDERED: Bisacodyl 10 MG Supp RECTAL PRN (10:59)
[2021-10-08] MEDS ORDERED: Acetaminophen 500 MG Tab PO PRN ×2 (10:59)
[2021-10-08] MEDS ORDERED: Tranexamic Acid 1,000 MG/10 ML Vial ONE (14:56)
[2021-10-09 08:18] VITALS: BP 98/59; PULSE 73
== END 2021-10-09 14:14 | disposition home or self-care (01) | DRG 807 ==
LOC: MW.OBCHECK 00:26 → MW.OB 00:28 → MW.OBCHECK 02:29 → MW.OB 02:30 → OBSVTOIN 10:32 → MW.OB 10-09 03:33
PROVIDERS: ADMIT Obstetrics & Gynecology; ATTEND Obstetrics & Gynecology
PROC: 10E0XZZ Delivery of Products of Conception, External Approach (ICD-10-PCS; principal; 2021-10-08)
PROC: 0KQM0ZZ Repair Perineum Muscle, Open Approach (ICD-10-PCS; 2021-10-08)
DX: O34.211 Maternal care for low transverse scar from previous cesarean delivery (principal); Z37.0 Single live birth; Z3A.38 38 weeks gestation of pregnancy; O70.1 Second degree perineal laceration during delivery; Z20.822 Contact with and (suspected) exposure to COVID-19
CPT/HCPCS: 36415; 59025; 59409; 82803; 84112; 85014; 85018; 85027; 85384; 85610; 85730; 86592; 86850; 86900; 86901; A9270-GY; J2001; J2590; J3490; U0002

== ENCOUNTER 2023-12-06 18:20 | Inpatient (IN) | payer BC ==
[2023-12-06] MEDS ORDERED: Water For Irrigation,Sterile 1,000 ML Container IRR PRN (19:01)
[2023-12-06] MEDS ORDERED: Methylergonovine 0.2 MG/1 ML Amp IM PRN (19:01)
[2023-12-06] MEDS ORDERED: Carboprost Tromethamine 250 MCG/1 mL Vial IM PRN (19:01)
[2023-12-06] MEDS ORDERED: Ondansetron 4 MG/2 ML SDV IVPUSH PRN (19:01)
[2023-12-06] MEDS ORDERED: Butorphanol 2 MG/ML SDV IVPUSH PRN (19:01)
[2023-12-06] MEDS ORDERED: Sodium Chloride 0.9% 20 ML SDV IV PRN (19:01)
[2023-12-06] MEDS ORDERED: Sodium Chloride 0.9% 10 ML Syringe FLUSH PRN (19:01)
[2023-12-06] MEDS ORDERED: Sodium Chloride 0.9% 2.5 ML Syringe FLUSH PRN (19:01)
[2023-12-06] MEDS ORDERED: Misoprostol 200 MCG Tab PO PRN (19:01)
[2023-12-06] MEDS ORDERED: Lactated Ringers 1,000 ML IV SCH (19:15)
[2023-12-06] MEDS: Oxytocin/0.9 % Sodium Chloride 30 UNIT/500 ML BAG IV SCH (19:45)
[2023-12-06] MEDS: Lidocaine 1% 50 ML MDV INJECT PRN (19:50)
[2023-12-06 19:53] LABS: HEMATOCRIT 39.3 % (37.0-47.0); HEMOGLOBIN 13.5 g/dL (12.0-16.0); MEAN CORPUSCULAR HEMOGLOBIN 30.1 pg (28.0-32.0); MEAN CORPUSCULAR HGB CONC 34.4 g/dL (32.0-36.0); MEAN CORPUSCULAR VOLUME 87.5 fL (83.0-99.0); MEAN PLATELET VOLUME 10.5 fL (9.4-12.3); PLATELET COUNT,PLT 250 K/uL (150-400); RED BLOOD CELL COUNT 4.49 M/uL (4.10-5.30); WHITE BLOOD CELL COUNT,WBC 12.49 K/uL (3.9-11.3)
[2023-12-06] MEDS ORDERED: Lanolin 100% Cream 7 GM Tube TOP PRN (21:51)
[2023-12-06] MEDS ORDERED: Docusate Sodium 100 MG Cap PO PRN (21:51)
[2023-12-06] MEDS ORDERED: Acetaminophen 500 MG Tab PO PRN (21:51)
[2023-12-06] MEDS ORDERED: Benzocaine/Menthol 20%-0.5% Spray 78 GM Cannister TOP PRN (21:51)
[2023-12-06] MEDS ORDERED: Ibuprofen 800 MG Tab PO PRN (21:51)
[2023-12-06] MEDS: Witch Hazel Medicated Pads 40/Jar TOP PRN (22:02)
[2023-12-06 23:14] LABS: PH,UMBILICAL ARTERIAL 7.255 (7.18-7.38); PH,UMBILICAL VENOUS 7.36 (7.25-7.45)
[2023-12-07 06:04] LABS: HEMATOCRIT 36.3 % (37.0-47.0); HEMOGLOBIN 12.4 g/dL (12.0-16.0)
[2023-12-07 23:46] VITALS: BP 124/61; PULSE 80
== END 2023-12-07 22:10 | disposition home or self-care (01) | DRG 560 ==
LOC: MW.OBCHECK 18:20 → MW.OB 19:01 → OBSVTOIN 19:43 → MW.OB 19:43
PROVIDERS: ADMIT Obstetrics & Gynecology; ATTEND Obstetrics & Gynecology
PROC: 10E0XZZ Delivery of Products of Conception, External Approach (ICD-10-PCS; principal; 2023-12-06)
PROC: 0KQM0ZZ Repair Perineum Muscle, Open Approach (ICD-10-PCS; 2023-12-06)
DX: O34.211 Maternal care for low transverse scar from previous cesarean delivery (principal); O48.0 Post-term pregnancy; O42.02 Full-term premature rupture of membranes, onset of labor within 24 hours of rupture; O70.1 Second degree perineal laceration during delivery; Z37.0 Single live birth; O77.0 Labor and delivery complicated by meconium in amniotic fluid; Z3A.40 40 weeks gestation of pregnancy
CPT/HCPCS: 36415; 59025; 59409; 59612; 82803; 85014; 85018; 85027; 86592; 86850; 86900; 86901; A9270-GY; J2001; J2590